=== PATIENT | male | born 1960 | race Caucasian/White ===

== ENCOUNTER → 2016-10-05 | Outpatient (CLI) | payer OTHER ==
[~2016-10-05] MED LIST: AZOR 10-20 MG1 UDTAB PO; CELEXA20 MG PO; EXFORGE 10-1601 TAB PO; LIPITOR PO; METFORMIN HCL500 M1 PO; MULTIVITAMIN1 UDCAP PO; SYNTHROID PO; TYLOX1 CAP 5/50 DOB; WAL-ITIN10 MG/TAB PO
--- NOTE | ~2016-10-05 | CR63 ---
[facility] A Service of [facility] & [facility] RADIOLOGY TEXT RESULTS PATIENT: TU ROBLES LOCATION: [facility] : 64 UNIT #: [id number] AGE: [address]: ELSIE ORTIZ APRN SEX: M ORDER DR: [id number] [facility] [address] [place], [place] [address] [id number] MR#: [id number] Acc #: [id number] NAME: TU ROBLES : 1960 SEX: M STUDY DATE/TIME: 10/05/2016 12:21 UNIT: [facility] ROOM: STUDY DESCRIPTION: CR Chest 2 View Attending Physician: Elsie Ortiz Np Referring Physician: Elsie Ortiz Np Ordering Physician: Elsie Ortiz Np Primary Care Physician: Katerine Ng M.D. MEDICAL IMAGING REPORT This report is preliminary unless electronic signature is present EXAM Chest, 10/05/16, [facility]. HISTORY 56-year-old male patient with unexplained cough. COMPARISON Chest, 11/17/14. FINDINGS PA and lateral chest views show normal cardiac size and configuration. Hilar structures and mediastinal contours are preserved. Bilateral lungs are expanded and clear. Costophrenic angles are clear. Bony thorax is normal. IMPRESSION Negative chest. Dictated by... Rogelio Carter M.D. THIS IS AN ELECTRONICALLY VERIFIED REPORT Rogelio Carter M.D. at 10/06/2016 8:09 AM KELY/addis TD: 10/05/2016 16:08 JOB #: [id number] MEDICAL IMAGING REPORT Page 1 of 1 COPY
== END | disposition home or self-care (01) ==
LOC: CRAD 12:00
DX: R05 Cough (principal)
CPT/HCPCS: 71020